=== PATIENT | male | born 1950 | race African-American/Black ===

== ENCOUNTER 2020-04-28 17:30 | IRF | payer MEDICARE, SELFPAY ==
--- NOTE | ~2020-04-28 | XR_ITS ---
MODIFIED ESOPHAGRAM HISTORY: Dysphagia. TECHNIQUE: Modified barium esophagram was performed by speech pathologist under radiologist fluorosco pic guidance. This was recorded on tape. The exam was reviewed on 05/02/2020 09:50 DISULFURIZER TENDER. The DAP for this procedure was 1.239 Gycm2. Fluoroscopy time is 1.6 minutes. FINDINGS: Lateral projection of the cervical spine demonstrates normal ventral osteophytes. Normal swallowing function without penetration or aspiration.. IMPRESSION: 1: Normal swallowing function without penetration or aspiration. 2: Please refer to speech pathologist report for additional detail. Reviewed, dictated and finalized at location A. LFURIZER TENDER
[2020-04-28 17:30] VITALS: BP 167/80; PULSE 64; RESP 20; TEMP 36.6; O2SAT 100; BMI 32.1
[2020-04-28 17:50] LABS: Glucose Point of Care 191 (65-105)
--- NOTE | 2020-04-28 18:03 | ADMGEN ---
This patient, Gabriel Gar, was admitted to [facility] Room 226-01. Patient/family oriented to hospital policies and general routines including ID bracelet, bed and alarms, visiting hours, pain management, procedures, bathroom and other care routines, personal items, smoking policy, room service/diet, and visiting hours. Information on how to activate the Rapid Response Team has been discussed. Patient/Family are encouraged to report perceived risks to care and to ask questions if they do not understand what they are told or what they should do. Patient arrived via stretcher with [facility] ambulance service, per EMS V/S were stable during transport. the patient is alert and oriented to person, place and time, states he has chronic pain and no new pain at this time.
[2020-04-28] MEDS: ATORVASTATIN 20 MG TABLET PO (21:25)
[2020-04-28] MEDS: EZETIMIBE 10 MG TABLET PO (21:25)
[2020-04-28] MEDS: GABAPENTIN 300 MG CAPSULE PO (21:25)
[2020-04-28] MEDS: FAMOTIDINE 20 MG TABLET PO (21:25)
[2020-04-28 22:00] VITALS: BP 156/87; PULSE 59; RESP 20; TEMP 36.8; O2SAT 95
[2020-04-28 23:15] LABS: Glucose Point of Care 218 (65-105)
[2020-04-29 05:05] LABS: Basophils Absolute Auto 0.1 K/mm3 (0.0-0.1); Basophils Percent Auto 0.8 % (0.2-1.2); Eosinophils Absolute Auto 0.3 K/mm3 (0-0.3); Eosinophils Percent Auto 2.8 % (0-4.4); Hematocrit 47.3 % (42.0-52.0); Hemoglobin 15.2 g/dL (14.0-18.0); Immature Granulocyte Absolute 0.18 K/mm3 (0.00-0.031); Immature Granulocyte Percent A 1.8 % (0-0.5); Lymphocytes Absolute Auto 2.61 K/mm3 (0.9-3.2); Lymphocytes Percent Auto 26.7 % (18.3-44.2); Mean Corpuscular HGB Conc 32.1 g/dl (32-36); Mean Corpuscular Hemoglobin 29.6 pg (26-34); Mean Platelet Volume 9.5 fl (7.4-10.4); Monocytes Absolute Auto 0.6 K/mm3 (0.1-0.6); Monocytes Percent Auto 6.1 % (2.6-8.5); Neutrophils Percent Auto 61.8 % (45.5-73.1); Platelet Count Result 403 k/mm3 (150-375); Red Blood Count 5.14 M/mm3 (4.6-6.20); Red Cell Distribution Width 13.9 % (11.5-14.5); White Blood Count 9.8 K/mm3 (4.5-10.0)
[2020-04-29 05:26] LABS: Hemoglobin A1C 7.8 % (<5.7)
[2020-04-29 05:39] LABS: Anion Gap 3 mmol/L (8-16); Blood Urea Nitrogen 8 mg/dL (9-20); Calcium 8.6 mg/dL (8.4-10.2); Carbon Dioxide 27 mmol/L (22-30); Chloride 108 mmol/L (98-107); Cholesterol 165 mg/dL (0-200); Estimated CRCL calculation 143 ml/min; Estimated Glomerular Filt Rate > 60; Glucose 162 mg/dL (75-110); HDL Direct 17 mg/dL; Potassium 4.3 mmol/L (3.4-5.0); Sodium 138 mmol/L (137-145); Triglycerides 172 mg/dL (<150)
[2020-04-29 05:50] LABS: LDL Cholesterol Direct 118 mg/dL
[2020-04-29 06:00] VITALS: BP 137/64; PULSE 64; RESP 20; TEMP 36.8; O2SAT 96
[2020-04-29 06:21] LABS: Glucose Point of Care 156 (65-105)
[2020-04-29] MEDS: ACETAMINOPHEN 500 MG TABLET PO ×2 (06:22→19:53)
[2020-04-29] MEDS: LEVOTHYROXINE SODIUM 125 MCG TABLET PO (06:23)
[2020-04-29] MEDS: ASPIRIN 81 MG CHEWABLE TABLET PO (09:39)
[2020-04-29] MEDS: TIZANIDINE HCL 4 MG TABLET 8 MG PO (09:39)
[2020-04-29] MEDS: CLOPIDOGREL BISULFATE 75 MG TABLET PO (09:40)
[2020-04-29] MEDS: lisinopriL 2.5 MG TABLET PO (09:40)
[2020-04-29] MEDS: CHOLECALCIFEROL 1,000 UNITS TABLET 1000 UNITS PO (09:40)
[2020-04-29] MEDS: FAMOTIDINE 20 MG TABLET PO ×2 (09:40→20:25)
[2020-04-29] MEDS: CYANOCOBALAMIN 1,000 MCG TABLET 1000 MCG PO (09:40)
[2020-04-29] MEDS: VITAMIN B COMPLEX CAPSULE 1 CAP PO (09:40)
--- NOTE | 2020-04-29 11:45 | WPDREHABHP ---
H&P: HPI History of Present Illness Date/Time: 04/29/20 11:45 Chief Complaint: his small acute recent stroke of the right cerebral hemisphere subcortical in location Narrative: Gabriel Gar is a 69 year old male HISTORY OF PRESENT ILLNESS: The patient's primary rehab impairment category is 0 1/stroke The etiologic diagnosis is small acute recent infarction in the right cerebral hemisphere I saw this patient [id number] on April 29, 2020 at 8:30 a.m. The patient is a 69 years old right-handed male with a medical history of PVD, diabetes type 2, COPD, and hypertension. The patient drove himself to the emergency room at [facility] several hours after onset of left-sided numbness on April 26, 2020. The patient stated he had gone to sleep the previous night at approximately 10:00 p.m. and was at baseline function at that time. He states he woke up a couple of times through the night and did not recall having numbness. Patient stated that he awoke at 4:00 a.m. and noticed numbness sensation along left side of face neck, Left side of the neck, left upper extremity, including left hand, left lower extremity, including left foot. Patient stated he waited for a few hours and when symptoms did not resolve he drove himself to the emergency room. He recalled having gait instability when walking to his car, some difficulties in driving. A head and neck CTA revealed no acute abnormalities, no evidence of intracranial hemorrhage, mass effect, or CT evidence of acute ischemia, and no carotid or vertebral stenosis. Cervical spine x-ray revealed degenerative changes at C5 and C6. A chest x-ray was Can a mild haziness and interstitial opacities predominantly in the lower lung, nonspecific for mild scattered atelectasis, pulmonary edema or atypical viral pneumonia. EKG showed sinus rhythm. Labs revealed hypercalcemia, elevated BUN, and low creatinine. An echo on April 27, 2020 showed an EF of 55 to 65%. Brain MRI revealed small acute recent infarction in the right cerebral hemisphere. Multiple chronic infarctions. Parenchymal volume loss and chronic microvascular ischemic type white matter changes. Neurology was consulted and recommended dietary changes, his smoking cessation, currently on Plavix and aspirin and hemoglobin A1c 7.9 bedside swallowing test recommended regular level 7 diet and nectar thickened liquids. Patient has improved since working with therapy, therapist he states patient would benefit from inpatient rehab. Will discharge to see on aspirin and Plavix for DVT prophylaxis for approximately 6 months. #COVID: The patient has not traveled outside the [place] or had contact with someone who is ill that is travel outside the [place] in the past 21 days. The patient has not traveled to an area of the [place] there is experiencing known transmission of the Coronavirus and has not had close personal contact with anyone that has. The patient does not have a fever. The patient is not experiencing lower respiratory illness symptoms. The patient does,however, have COPD at baseline. Patient tested negative for COVID on April 26, 2020 Therapy was initiated at the [facility] facility and the patient transferred to from [facility] on April 28, 2020. FALLS OR SURGERIES: the patient has not had any surgery in the last 100 days. Patient has had more than 2 falls in the past year. The patient has had no falls with injury in the past year.. PAST MEDICAL HISTORY: Benign prostatic hypertrophy, chronic pain, PD, DTs mellitus, lipidemia, neuropathy, peripheral vascular disease, thyroid goiter, tobacco use. PAST SURGICAL HISTORY: Thyroid surgery in 2017, cervical spine surgery in 1995, cholecystectomy in 2004, right knee surgery in 2014, [facility] left inguinal hernia repair and revascularization of the iliac artery with angio stent in 2016, and colonoscopy in November 26, 2019. SOCIAL HISTORY: The sussy
[2020-04-29 12:15] LABS: Glucose Point of Care 277 (65-105)
[2020-04-29 12:32] VITALS: BMI 32.1
[2020-04-29] MEDS: INSULIN ASPART (*BKC) 100 UNITS/ML SUB-Q ×2 (13:11→18:28)
[2020-04-29] MEDS: HYDROcodone/acetaminophen (*CRX) 10-325 MG TABLET 1 TAB PO ×2 (13:13→21:53)
[2020-04-29] MEDS: MAGNESIUM OXIDE 200 MG TABLET PO (13:14)
[2020-04-29 14:00] VITALS: BP 136/66; PULSE 62; RESP 18; TEMP 36.4; O2SAT 97
--- NOTE | 2020-04-29 15:16 | WPDNEURORHBP ---
Subjective Date/time seen: 04/29/20 15:16 69 years old with right hemispheric subcortical stroke in addition to the ongoing diagnosis of 1. Diabetes mellitus 2. COPD 3. Hypertension 4. History of PVD remains afebrile with pulse of 64 respiration 20 blood pressure 137/64 pulse ox 96% on room air CBC normal platelet count of 403 electrolytes normal 277 hemoglobin A1c 7.8 and triglycerides 172 along with HDL only 17 failed on the modified barium swallow will need the thickened liquids Review of Systems Review of Systems: All systems reviewed & are unremarkable except as noted in HPI and below Functional Status Ambulation Ability Ability to Ambulate 10 Feet: Maximum Assistance X 1 Ability to Ambulate 50 Feet With 2 Turns: Maximum Assistance X 1 Ambulation Assistive Devices: None and Cane Exam Const: General: no acute distress Nutritional Appearance: average body habitus HENMT: Head: normocephalic Eyes: General: appearance normal, both eyes and all related structures Neck: Neck: full ROM and no lymphadenopathy Resp: Effort & Inspection: normal respiratory effort Auscultation: clear to auscultation bilaterally Cardio: Jugular venous distension: no JVD Rate: regular rate Rhythm: regular rhythm GI: Auscultation: normal bowel sounds Skin: General skin exam: no rashes or lesions noted Neuro: General: patient oriented x3 and moves all extremities Cranial nerves: Yes CN's II-XII intact bilaterally Cognition (Neuro): normal cognition Speech: normal speech Gait exam (Neuro): Normal gait present ( left hemiparetic gait) Motor exam (neuro): Abnormal motor strength present ( left hemiparesis) Plantar Reflex Responses: downgoing: right and upgoing (positive Babinski): left Coordination: [id number] test normal Extrem: General: full ROM Psych: Appearance: grossly normal Objective Data Vital Signs Vital Signs: Vital Signs - 24 hr 04/28/20 17:30 04/28/20 22:00 04/29/20 06:00 Temperature 36.6 C 36.8 C 36.8 C Pulse Rate 64 59 L 64 Respiratory Rate 20 20 20 Blood Pressure 167/80 H 156/87 H 137/64 Pulse Oximetry 100 95 96 Intake/Output Intake/Output: Intake & Output 04/26/20 04/27/20 04/28/20 04/29/20 23:59 23:59 23:59 23:59 Intake Total 600 Balance 600 Meds/Results Medications: Active Medications Generic Name Dose Route Start Last Admin Trade Name Freq PRN Reason Stop Dose Admin Acetaminophen 500 mg 04/28/20 18:54 04/29/20 06:22 Acetaminophen 500 Mg Tablet PO 500 mg Q6H PRN Administration Pain Hydrocodone Bitart/Acetaminophen 1 tab 04/29/20 14:00 04/29/20 13:13 Hydrocodone/Acetaminophen (*Crx) 10-325 Mg Tablet PO 1 tab Q8H SUKHJINDER Administration Albuterol 2 puff 04/28/20 18:54 Albuterol Sulfate (*Sp) Aerosol 1 Puff INHALATION Q4H PRN Wheezing Aspirin 81 mg 04/29/20 09:00 04/29/20 09:39 Aspirin 81 Mg Chewable Tablet PO 05/29/20 09:01 81 mg DAILY SUKHJINDER Administration Atorvastatin Calcium 20 mg 04/28/20 21:00 04/28/20 21:25 Atorvastatin 20 Mg Tablet PO 20 mg HS SUKHJINDER Administration Clopidogrel Bisulfate 75 mg 04/29/20 09:00 04/29/20 09:40 Clopidogrel Bisulfate 75 Mg Tablet PO 75 mg DAILY SUKHJINDER Administration Cyanocobalamin 1,000 mcg 04/29/20 09:00 04/29/20 09:40 Cyanocobalamin 1,000 Mcg Tablet PO 1,000 mcg DAILY SUKHJINDER Administration Dextrose 12.5 gm 04/28/20 18:18 Dextrose 50% 25 Gm/50 Ml Syringe IV PUSH PRN PRN Hypoglycemia Protocol Ezetimibe 10 mg 04/28/20 21:00 04/28/20 21:25 Ezetimibe 10 Mg Tablet PO 10 mg HS SUKHJINDER Administration Famotidine 20 mg 04/28/20 21:00 04/29/20 09:40 Famotidine 20 Mg Tablet PO 20 mg Q12HR SUKHJINDER Administration Gabapentin 300 mg 04/28/20 21:00 04/28/20 21:25 Gabapentin 300 Mg Capsule PO 300 mg HS SUKHJINDER Administration Glucagon 1 mg 04/28/20 18:18 Glucagon For Inj 1 Mg Vial IM PRN PRN Hypoglycemia Protocol Glucose
[2020-04-29 16:56] LABS: Glucose Point of Care 215 (65-105)
[2020-04-29 20:00] VITALS: PULSE 51; RESP 16; O2SAT 98
[2020-04-29] MEDS: ATORVASTATIN 20 MG TABLET PO (20:25)
[2020-04-29] MEDS: GABAPENTIN 300 MG CAPSULE PO (20:25)
[2020-04-29] MEDS: EZETIMIBE 10 MG TABLET PO (20:25)
[2020-04-29 22:00] VITALS: BP 129/71; PULSE 51; RESP 16; TEMP 36.7; O2SAT 98
[2020-04-29 22:43] LABS: Glucose Point of Care 196 (65-105)
[2020-04-30] MEDS: LEVOTHYROXINE SODIUM 125 MCG TABLET PO (05:49)
[2020-04-30] MEDS: HYDROcodone/acetaminophen (*CRX) 10-325 MG TABLET 1 TAB PO ×3 (05:50→22:20)
[2020-04-30 06:00] VITALS: BP 134/79; PULSE 78; RESP 16; TEMP 36.6; O2SAT 100
[2020-04-30 06:54] LABS: Glucose Point of Care 155 (65-105)
[2020-04-30 08:00] VITALS: PULSE 78; RESP 16; O2SAT 100
[2020-04-30] MEDS: CYANOCOBALAMIN 1,000 MCG TABLET 1000 MCG PO (09:51)
[2020-04-30] MEDS: MAGNESIUM OXIDE 200 MG TABLET PO (09:51)
[2020-04-30] MEDS: lisinopriL 2.5 MG TABLET PO (09:51)
[2020-04-30] MEDS: ASPIRIN 81 MG CHEWABLE TABLET PO (09:51)
[2020-04-30] MEDS: VITAMIN B COMPLEX CAPSULE 1 CAP PO (09:51)
[2020-04-30] MEDS: FAMOTIDINE 20 MG TABLET PO ×2 (09:51→20:02)
[2020-04-30] MEDS: CHOLECALCIFEROL 1,000 UNITS TABLET 1000 UNITS PO (09:51)
[2020-04-30] MEDS: CLOPIDOGREL BISULFATE 75 MG TABLET PO (09:52)
[2020-04-30 11:54] LABS: Glucose Point of Care 252 (65-105)
[2020-04-30] MEDS: INSULIN ASPART (*BKC) 100 UNITS/ML SUB-Q ×2 (11:59→17:14)
--- NOTE | 2020-04-30 12:01 | WPDNEURORHBP ---
Subjective Date/time seen: 04/30/20 12:01 69 years old his right hemispheric subcortical stroke in addition to 1. Diabetes mellitus 2. COPD 3. Hypertension 4. History of PVD remains afebrile with temp of 36.6? 78 respirations 16 pulse ox 100 on room air, no new lab Review of Systems Review of Systems: All systems reviewed & are unremarkable except as noted in HPI and below Functional Status Ambulation Ability Ability to Ambulate 10 Feet: Minimum Assistance X 1 Ability to Ambulate 50 Feet With 2 Turns: Minimum Assistance X 1 Ambulation Assistive Devices: Walker, Wheeled Transfers Ability Ability to Transfer In/Out of Chair: Minimum Assistance X 1 Exam Const: General: comfortable and no acute distress Nutritional Appearance: average body habitus Orientation/consciousness: patient oriented x3 HENMT: Ears: hearing grossly normal bilaterally General nose exam: Normal external nose present and No nasal discharge present Mouth: Yes Normal oral and palatal mucosa present Eyes: General: appearance normal, both eyes and all related structures Neck: Neck: full ROM Resp: Effort & Inspection: normal respiratory effort Auscultation: clear to auscultation bilaterally Cardio: Jugular venous distension: no JVD Rate: regular rate Rhythm: regular rhythm GI: Auscultation: normal bowel sounds Skin: General skin exam: no rashes or lesions noted Neuro: General: patient oriented x3 and moves all extremities Cranial nerves: Yes CN's II-XII intact bilaterally Cognition (Neuro): normal cognition Speech: normal speech Gait exam (Neuro): Assisted gait required Motor exam (neuro): 5/5 motor strength present throughout ( left hemiparesis) Deep tendon reflexes (DTR's): Right triceps reflex intensity grade: 1+, Left triceps reflex intensity grade: 2+, Rt Biceps (C5, C6): 1+, Left biceps reflex intensity grade: 2+, Right brachioradialis reflex intensity grade: 1+, Left brachioradialis reflex intensity grade: 2+, Right patellar reflex intensity grade: 1+, Left patellar reflex intensity grade: 2+, Right ankle reflex intensity grade: 1+ and Left ankle reflex intensity grade: 2+ Plantar Reflex Responses: downgoing: right and upgoing (positive Babinski): left Coordination: Normal rapid alternating movements of the distal upper extremity present (Neuro) ( slow on the left side) Psych: Appearance: grossly normal Objective Data Vital Signs Vital Signs: Vital Signs - 24 hr 01/13/21 14:00 04/29/20 20:00 04/29/20 22:00 Temperature 36.4 C 36.7 C Pulse Rate 62 51 L 51 L Respiratory Rate 18 16 16 Blood Pressure 136/66 129/71 Pulse Oximetry 97 98 98 04/30/20 06:00 04/30/20 08:00 Temperature 36.6 C Pulse Rate 78 78 Respiratory Rate 16 16 Blood Pressure 134/79 Pulse Oximetry 100 100 Intake/Output Intake/Output: Intake & Output 04/27/20 04/28/20 04/29/20 04/30/20 23:59 23:59 23:59 23:59 Intake Total 840 240 Balance 840 240 Meds/Results Medications: Active Medications Generic Name Dose Route Start Last Admin Trade Name Freq PRN Reason Stop Dose Admin Acetaminophen 500 mg 04/28/20 18:54 04/29/20 19:53 Acetaminophen 500 Mg Tablet PO 500 mg Q6H PRN Administration Pain Hydrocodone Bitart/Acetaminophen 1 tab 04/29/20 14:00 04/30/20 05:50 Hydrocodone/Acetaminophen (*Crx) 10-325 Mg Tablet PO 1 tab Q8H SUKHJINDER Administration Albuterol 2 puff 04/28/20 18:54 Albuterol Sulfate (*Sp) Aerosol 1 Puff INHALATION Q4H PRN Wheezing Aspirin 81 mg 04/29/20 09:00 04/30/20 09:51 Aspirin 81 Mg Chewable Tablet PO 05/29/20 09:01 81 mg DAILY SUKHJINDER Administration Atorvastatin Calcium 20 mg 04/28/20 21:00 04/29/20 20:25 Atorvastatin 20 Mg Tablet PO 20 mg HS SUKHJINDER Administration Clopidogrel Bisulfate 75 mg 04/29/20 09:00 04/30/20 09:52 Clopidogrel Bisulfate 75 Mg Tablet PO 75 mg DAILY SUKHJINDER Administration Cyanocobalamin 1,000 mcg 04/29/20 09:00 04/30/20 09:51 Cyanocobalamin
[2020-04-30 14:00] VITALS: BP 138/76; PULSE 81; RESP 20; TEMP 36.6; O2SAT 100
--- NOTE | 2020-04-30 14:13 | RPD ---
INDIVIDUALIZED PLAN OF CARE FOR aGbriel Gar Brief Synthesis of Pre-Admission Screen, Post-Admission Evaluation and Therapy Evaluations: The patient presents to rehab with a right cerebral hemisphere acute infarct. Comorbidities include hypertension, hyperlipidemia, diabetes type 2, hypercholesterolemia, elevated hemoglobin A1c, dyslipidemia, postsurgical hypothyroidism, chronic pain, polyneuropathy, arteriosclerotic cardiovascular disease, tobacco use, hypocalcemia, PVD, and PAD. The complexity of the patient's medical management, nursing, and therapy needs require an inpatient rehab hospital stay with a physician-led interdisciplinary team approach. The patient?s needs will be best met in an intensive program vs. at a lower level of care. The patient requires physician services for neurology services, medical oversight, and coordination of care. Emotional needs will be monitored as depression is a common sequelae of stroke. The patient needs physician monitoring and treatment of monitoring for adverse reactions to new medications, monitoring of infection, pain control, hypertension, hyperlipidemia, hypercholesterolemia, diabetes type 2, elevated hemoglobin A1c, dyslipidemia, postsurgical hypothyroidism, chronic pain, polyneuropathy, arteriosclerotic cardiovascular disease, smoking, PVD, hypocalcemia, and PAD. The patient requires nursing services for frequent neuro checks, anticoagulation therapy, medication management and education, pressure relief and skin care management, monitoring of labs, bowel and bladder training, diabetes management and education, and fall/safety precautions. The patient will participate in stroke specific education regarding risk modification to decrease the risk of further stroke; the family will also be invited to participate. Deficits include:ADLs, Balance, Endurance, Family Training/Education, Mobility, Pain Management, ROM, Safety, Speech, Strength, Swallowing, and Transfers. Manager Transition/Case Management for: Discharge Planning and Patient/Family Counseling Physical Therapy: 5 days per week for 75 minutes. Treatments may include: Therapeutic Exercise, Gait Training, Neuromuscular Re-education, Transfer Training, Community Reintegration, Bed Mobility, Patient/Family Education, Wheelchair Mobility Group Therapy/Concurrent Therapy Rationales: -Improve attention span during functional activities in a distracted environment. -Enhance problem solving and/or adequate judgment skills during functional activities in a distracted environment. -Promote increased safety awareness in a distracted environment to reduce fall risk with functional tasks, transfers, and ambulation to allow a more safe, self-sufficient return to the home environment. -Improve dynamic balance skills to promote safety and independence with functional activities in a distracted environment for maximum gain. Occupational Therapy: 5 days per week for 75 minutes. Treatments may include: Therapeutic Exercise, Therapeutic Activity, Cognitive Training, Self-Care Transfer Training, Community Reintegration, Home Management, Patient/Family Education, Wheelchair Mobility Training, Energy Conservation Training Group Therapy/Concurrent Therapy Rationales: -Allow therapist to observe and teach generalization and carry-over of skills learned in individual therapy. -Enhance problem solving and sequencing skills during therapeutic activities in a distracted environment. -Promote increased safety awareness in a realistic setting to reduce fall risk with functional tasks due to visual and verbal distractions. -Increase functional level with ADLs, ADL transfers and use of adaptive equipment through therapeutic activities with others while promoting safety to allow a more safe, self-sufficient return home. Speech Therapy: 5 days per week for 30 minutes. Treatments may include: Dysphasia Therapy, Speech/Language/Communication Therapy, Cognitive Training, Patient/Family Education Group The
[2020-04-30 16:48] LABS: Glucose Point of Care 243 (65-105)
[2020-04-30 20:00] VITALS: PULSE 81; RESP 20; O2SAT 100
[2020-04-30] MEDS: ATORVASTATIN 20 MG TABLET PO (20:02)
[2020-04-30] MEDS: GABAPENTIN 300 MG CAPSULE PO (20:02)
[2020-04-30] MEDS: EZETIMIBE 10 MG TABLET PO (20:03)
[2020-04-30] MEDS: ACETAMINOPHEN 500 MG TABLET PO (20:05)
[2020-04-30] MEDS: TIZANIDINE HCL 4 MG TABLET 8 MG PO (20:07)
[2020-04-30 22:00] VITALS: BP 109/60; PULSE 50; RESP 20; TEMP 37.1; O2SAT 98
[2020-05-01 03:44] LABS: Glucose Point of Care 268 (65-105)
[2020-05-01] MEDS: LEVOTHYROXINE SODIUM 125 MCG TABLET PO (05:41)
[2020-05-01 05:43] LABS: Glucose Point of Care 256 (65-105)
[2020-05-01] MEDS: HYDROcodone/acetaminophen (*CRX) 10-325 MG TABLET 1 TAB PO ×3 (05:43→21:00)
[2020-05-01 06:00] VITALS: BP 144/73; PULSE 55; RESP 18; TEMP 36.6; O2SAT 96
[2020-05-01] MEDS: MAGNESIUM OXIDE 200 MG TABLET PO (08:31)
[2020-05-01] MEDS: CHOLECALCIFEROL 1,000 UNITS TABLET 1000 UNITS PO (08:31)
[2020-05-01] MEDS: VITAMIN B COMPLEX CAPSULE 1 CAP PO (08:31)
[2020-05-01] MEDS: ASPIRIN 81 MG CHEWABLE TABLET PO (08:31)
[2020-05-01] MEDS: lisinopriL 2.5 MG TABLET PO (08:31)
[2020-05-01] MEDS: CLOPIDOGREL BISULFATE 75 MG TABLET PO (08:31)
[2020-05-01] MEDS: CYANOCOBALAMIN 1,000 MCG TABLET 1000 MCG PO (08:31)
[2020-05-01] MEDS: FAMOTIDINE 20 MG TABLET PO ×2 (08:31→21:00)
[2020-05-01] MEDS: INSULIN ASPART (*BKC) 100 UNITS/ML SUB-Q ×4 (08:32→16:46)
[2020-05-01] MEDS: ACETAMINOPHEN 500 MG TABLET PO (08:42)
--- NOTE | 2020-05-01 10:40 | WPDNEURORHBP ---
Subjective Date/time seen: 05/01/20 10:40 69 years old with right hemispheric subcortical stroke in addition to history of diabetes mellitus, COPD, hypertension, and history of PVD remains afebrile with temp of 36.6? pulse 55 respiration 18 pulse ox 96% on room air blood pressure 144/73, no new lab, able to ambulate up to 50ft with 2 turns using the minimum assistance of a wheeled walker able to transfer in and out of chair with minimal assistance of 1 definitely making progress Review of Systems Review of Systems: All systems reviewed & are unremarkable except as noted in HPI and below Functional Status Ambulation Ability Ability to Ambulate 10 Feet: Minimum Assistance X 1 Ability to Ambulate 50 Feet With 2 Turns: Minimum Assistance X 1 Ambulation Assistive Devices: Walker, Wheeled Transfers Ability Ability to Transfer In/Out of Chair: Minimum Assistance X 1 Exam Const: General: cooperative and no acute distress Nutritional Appearance: average body habitus Limitations: no limitations HENMT: Ears: hearing grossly normal bilaterally General nose exam: Normal external nose present and No nasal discharge present Mouth: Yes Normal oral and palatal mucosa present Eyes: General: appearance normal, both eyes and all related structures EOM: EOMs intact bilaterally Cardio: Jugular venous distension: no JVD Rate: regular rate Rhythm: regular rhythm GI: Auscultation: normal bowel sounds Skin: General skin exam: no rashes or lesions noted Neuro: General: patient oriented x3 Cranial nerves: Yes CN's II-XII intact bilaterally Cognition (Neuro): normal cognition Speech: normal speech Motor exam (neuro): Abnormal motor strength present Deep tendon reflexes (DTR's): Right triceps reflex intensity grade: 1+, Left triceps reflex intensity grade: 2+, Rt Biceps (C5, C6): 1+, Left biceps reflex intensity grade: 2+, Right brachioradialis reflex intensity grade: 1+, Left brachioradialis reflex intensity grade: 2+, Right patellar reflex intensity grade: 1+, Left patellar reflex intensity grade: 2+, Right ankle reflex intensity grade: 1+ and Left ankle reflex intensity grade: 2+ Plantar Reflex Responses: downgoing: right and upgoing (positive Babinski): left Psych: Appearance: grossly normal Objective Data Vital Signs Vital Signs: Vital Signs - 24 hr 04/30/20 14:00 04/30/20 20:00 04/30/20 22:00 Temperature 36.6 C 37.1 C Pulse Rate 81 81 50 L Respiratory Rate 20 20 20 Blood Pressure 138/76 109/60 Pulse Oximetry 100 100 98 05/01/20 06:00 Temperature 36.6 C Pulse Rate 55 L Respiratory Rate 18 Blood Pressure 144/73 H Pulse Oximetry 96 Intake/Output Intake/Output: Intake & Output 04/28/20 04/29/20 04/30/20 05/01/20 23:59 23:59 23:59 23:59 Intake Total 840 720 240 Balance 840 720 240 Meds/Results Medications: Active Medications Generic Name Dose Route Start Last Admin Trade Name Freq PRN Reason Stop Dose Admin Acetaminophen 500 mg 04/28/20 18:54 05/01/20 08:42 Acetaminophen 500 Mg Tablet PO 500 mg Q6H PRN Administration Pain Hydrocodone Bitart/Acetaminophen 1 tab 04/29/20 14:00 05/01/20 05:43 Hydrocodone/Acetaminophen (*Crx) 10-325 Mg Tablet PO 1 tab Q8H SUKHJINDER Administration Albuterol 2 puff 04/28/20 18:54 Albuterol Sulfate (*Sp) Aerosol 1 Puff INHALATION Q4H PRN Wheezing Aspirin 81 mg 04/29/20 09:00 05/01/20 08:31 Aspirin 81 Mg Chewable Tablet PO 05/29/20 09:01 81 mg DAILY SUKHJINDER Administration Atorvastatin Calcium 20 mg 04/28/20 21:00 04/30/20 20:02 Atorvastatin 20 Mg Tablet PO 20 mg HS SUKHJINDER Administration Clopidogrel Bisulfate 75 mg 04/29/20 09:00 05/01/20 08:31 Clopidogrel Bisulfate 75 Mg Tablet PO 75 mg DAILY SUKHJINDER Administration Cyanocobalamin 1,000 mcg 04/29/20 09:00 05/01/20 08:31 Cyanocobalamin 1,000 Mcg Tablet PO 1,000 mcg DAILY SUKHJINDER Administration Dextrose 12.5 gm 04/28/20 18:18 Dextrose 50% 25 Gm/50 Ml Syringe
[2020-05-01 11:58] LABS: Glucose Point of Care 236 (65-105)
[2020-05-01 14:00] VITALS: BP 133/69; PULSE 65; RESP 18; TEMP 36.8; O2SAT 100
[2020-05-01 15:10] VITALS: BMI 32.1
--- NOTE | 2020-05-01 15:26 | PCSTNOTE ---
Please refer to the Bedside Swallow Evaluation in the EMR. Please note, silent aspiration cannot be ruled out at bedside.
[2020-05-01 16:42] LABS: Glucose Point of Care 154 (65-105)
[2020-05-01 20:49] VITALS: BP 120/66; PULSE 65; RESP 18; TEMP 36.7; O2SAT 96
[2020-05-01] MEDS: GABAPENTIN 300 MG CAPSULE PO (21:00)
[2020-05-01] MEDS: INSULIN GLARGINE (*BKC) 100 UNITS/ML 16 UNITS SUB-Q (21:00)
[2020-05-01] MEDS: ATORVASTATIN 20 MG TABLET PO (21:00)
[2020-05-01] MEDS: EZETIMIBE 10 MG TABLET PO (21:00)
[2020-05-01 21:09] LABS: Glucose Point of Care 206 (65-105)
[2020-05-01 22:42] LABS: Add Urine Microscopic? YES; Appearance Urine Clear (Clear); Bilirubin Urine Negative (Negative); Blood Urine 2+ (Negative); Color Urine Yellow (Yellow); Glucose Urine UA Negative (Negative); Ketones Urine Negative (Negative); Leukocyte Esterase Ur Negative LEU/UL (Negative); Mucus Urine Rare /lpf; Nitrate Urine Negative (Negative); Protein Urine Negative (Negative); RBC Urine >75 /hpf (0-2); Squamous Epithelial Cell Urine Rare /hpf (Few); WBC Urine 0-3 /hpf
[2020-05-02 06:00] VITALS: BP 131/70; PULSE 67; RESP 20; TEMP 36.8; O2SAT 97
[2020-05-02] MEDS: HYDROcodone/acetaminophen (*CRX) 10-325 MG TABLET 1 TAB PO ×3 (06:00→21:58)
[2020-05-02] MEDS: LEVOTHYROXINE SODIUM 125 MCG TABLET PO (06:00)
[2020-05-02 06:23] LABS: Glucose Point of Care 170 (65-105)
[2020-05-02] MEDS: ASPIRIN 81 MG CHEWABLE TABLET PO (08:17)
[2020-05-02] MEDS: MAGNESIUM OXIDE 200 MG TABLET PO (08:17)
[2020-05-02] MEDS: FAMOTIDINE 20 MG TABLET PO ×2 (08:17→21:05)
[2020-05-02] MEDS: CHOLECALCIFEROL 1,000 UNITS TABLET 1000 UNITS PO (08:17)
[2020-05-02] MEDS: CLOPIDOGREL BISULFATE 75 MG TABLET PO (08:18)
[2020-05-02] MEDS: INSULIN ASPART (*BKC) 100 UNITS/ML SUB-Q ×3 (08:18→16:46)
[2020-05-02] MEDS: lisinopriL 2.5 MG TABLET PO (08:18)
[2020-05-02] MEDS: ACETAMINOPHEN 500 MG TABLET PO ×2 (08:18→19:56)
[2020-05-02] MEDS: CYANOCOBALAMIN 1,000 MCG TABLET 1000 MCG PO (08:18)
[2020-05-02] MEDS: VITAMIN B COMPLEX CAPSULE 1 CAP PO (08:18)
[2020-05-02 13:17] LABS: Glucose Point of Care 199 (65-105)
[2020-05-02 14:00] VITALS: BP 136/67; PULSE 67; RESP 20; TEMP 36.5; O2SAT 98
[2020-05-02 16:41] LABS: Glucose Point of Care 200 (65-105)
[2020-05-02] MEDS: CLINDAMYCIN HCL 150 MG CAP 300 MG PO (19:50)
[2020-05-02 20:48] VITALS: BP 134/67; PULSE 71; RESP 18; TEMP 36.6; O2SAT 97
[2020-05-02] MEDS: GABAPENTIN 300 MG CAPSULE PO (21:05)
[2020-05-02] MEDS: ATORVASTATIN 20 MG TABLET PO (21:05)
[2020-05-02] MEDS: EZETIMIBE 10 MG TABLET PO (21:05)
[2020-05-02] MEDS: INSULIN GLARGINE (*BKC) 100 UNITS/ML 16 UNITS SUB-Q (21:09)
[2020-05-02 22:08] LABS: Glucose Point of Care 270 (65-105)
[2020-05-03] MEDS: CLINDAMYCIN HCL 150 MG CAP 300 MG PO ×5 (00:57→23:18)
[2020-05-03] MEDS: LEVOTHYROXINE SODIUM 125 MCG TABLET PO (05:54)
[2020-05-03] MEDS: HYDROcodone/acetaminophen (*CRX) 10-325 MG TABLET 1 TAB PO ×3 (05:54→21:05)
[2020-05-03 06:00] VITALS: BP 117/61; PULSE 65; RESP 18; TEMP 36.6; O2SAT 99
[2020-05-03 06:49] LABS: Glucose Point of Care 172 (65-105)
[2020-05-03] MEDS: CHOLECALCIFEROL 1,000 UNITS TABLET 1000 UNITS PO (09:03)
[2020-05-03] MEDS: INSULIN ASPART (*BKC) 100 UNITS/ML SUB-Q ×4 (09:03→17:21)
[2020-05-03] MEDS: CLOPIDOGREL BISULFATE 75 MG TABLET PO (09:03)
[2020-05-03] MEDS: ASPIRIN 81 MG CHEWABLE TABLET PO (09:03)
[2020-05-03] MEDS: FAMOTIDINE 20 MG TABLET PO ×2 (09:04→21:05)
[2020-05-03] MEDS: VITAMIN B COMPLEX CAPSULE 1 CAP PO (09:04)
[2020-05-03] MEDS: lisinopriL 2.5 MG TABLET PO (09:04)
[2020-05-03] MEDS: MAGNESIUM OXIDE 200 MG TABLET PO (09:04)
[2020-05-03] MEDS: TIZANIDINE HCL 4 MG TABLET 8 MG PO ×2 (09:09→21:05)
[2020-05-03] MEDS: CYANOCOBALAMIN 1,000 MCG TABLET 1000 MCG PO (09:41)
[2020-05-03 11:53] LABS: Glucose Point of Care 191 (65-105)
--- NOTE | 2020-05-03 13:23 | WPDNEURORHBP ---
Subjective Date/time seen: 05/03/20 13:23 69 years old with right hemispheric subcortical stroke in addition to history of diabetes mellitus, COPD, hypertension, and PVD remains afebrile with temp of 36.6? pulse 65 respiration 18 pulse ox 99% on room air and blood pressure 117/61, has been able to ambulate 50ft with 2 turns with minimum assistance of 1 using a wheeled walker. Review of Systems Review of Systems: All systems reviewed & are unremarkable except as noted in HPI and below Functional Status Ambulation Ability Ability to Ambulate 10 Feet: Contact Guard Ability to Ambulate 50 Feet With 2 Turns: Contact Guard Ability to Ambulate 150 Feet: Contact Guard Ambulation Assistive Devices: Cane Transfers Ability Ability to Transfer In/Out of Chair: Standby Assistance Exam Const: General: cooperative and no acute distress Nutritional Appearance: well nourished HENMT: Head: normocephalic Ears: hearing grossly normal bilaterally General nose exam: Normal external nose present and No nasal discharge present Face and sinus: normal facial exam Mouth: Yes Normal oral and palatal mucosa present Eyes: General: appearance normal, both eyes and all related structures Neck: Neck: full ROM Resp: Effort & Inspection: normal respiratory effort Auscultation: clear to auscultation bilaterally Cardio: Jugular venous distension: no JVD Rate: regular rate Rhythm: regular rhythm Skin: General skin exam: no rashes or lesions noted Neuro: General: patient oriented x3 Cranial nerves: Yes CN's II-XII intact bilaterally Cognition (Neuro): normal cognition Motor exam (neuro): Abnormal motor strength present Deep tendon reflexes (DTR's): Right triceps reflex intensity grade: 2+, Left triceps reflex intensity grade: 1+, Rt Biceps (C5, C6): 2+, Left biceps reflex intensity grade: 1+, Right brachioradialis reflex intensity grade: 2+, Left brachioradialis reflex intensity grade: 1+, Right patellar reflex intensity grade: 2+, Left patellar reflex intensity grade: 1+, Right ankle reflex intensity grade: 2+ and Left ankle reflex intensity grade: 1+ Plantar Reflex Responses: downgoing: left and upgoing (positive Babinski): right Psych: Appearance: grossly normal Objective Data Vital Signs Vital Signs: Vital Signs - 24 hr 05/02/20 14:00 05/02/20 20:48 05/03/20 06:00 Temperature 36.5 C 36.6 C 36.6 C Pulse Rate 67 71 65 Respiratory Rate 20 18 18 Blood Pressure 136/67 134/67 117/61 Pulse Oximetry 98 97 99 Intake/Output Intake/Output: Intake & Output 04/30/20 05/01/20 05/02/20 05/03/20 23:59 23:59 23:59 23:59 Intake Total 720 720 720 240 Balance 720 720 720 240 Meds/Results Medications: Active Medications Generic Name Dose Route Start Last Admin Trade Name Freq PRN Reason Stop Dose Admin Acetaminophen 500 mg 04/28/20 18:54 05/02/20 19:56 Acetaminophen 500 Mg Tablet PO 500 mg Q6H PRN Administration Pain Hydrocodone Bitart/Acetaminophen 1 tab 04/29/20 14:00 05/03/20 05:54 Hydrocodone/Acetaminophen (*Crx) 10-325 Mg Tablet PO 1 tab Q8H SUKHJINDER Administration Albuterol 2 puff 04/28/20 18:54 Albuterol Sulfate (*Sp) Aerosol 1 Puff INHALATION Q4H PRN Wheezing Aspirin 81 mg 04/29/20 09:00 05/03/20 09:03 Aspirin 81 Mg Chewable Tablet PO 05/29/20 09:01 81 mg DAILY SUKHJINDER Administration Atorvastatin Calcium 20 mg 04/28/20 21:00 05/02/20 21:05 Atorvastatin 20 Mg Tablet PO 20 mg HS SUKHJINDER Administration Clindamycin HCl 300 mg 05/02/20 18:00 05/03/20 12:39 Clindamycin Hcl 150 Mg Cap PO 300 mg Q6HR SUKHJINDER Administration Clopidogrel Bisulfate 75 mg 04/29/20 09:00 05/03/20 09:03 Clopidogrel Bisulfate 75 Mg Tablet PO 75 mg DAILY SUKHJINDER Administration Cyanocobalamin 1,000 mcg 04/29/20 09:00 05/03/20 09:41 Cyanocobalamin 1,000 Mcg Tablet PO 1,000 mcg DAILY SUKHJINDER Administration Dextrose 12.5 gm 04/28/20 18:18 Dextrose 50% 25 Gm/50 Ml Syringe IV PUSH P
[2020-05-03 14:00] VITALS: BP 101/51; PULSE 51; RESP 18; TEMP 36.3; O2SAT 98
[2020-05-03 17:08] LABS: Glucose Point of Care 234 (65-105)
[2020-05-03] MEDS: INSULIN GLARGINE (*BKC) 100 UNITS/ML 16 UNITS SUB-Q (21:03)
[2020-05-03] MEDS: GABAPENTIN 300 MG CAPSULE PO (21:04)
[2020-05-03] MEDS: EZETIMIBE 10 MG TABLET PO (21:05)
[2020-05-03] MEDS: ATORVASTATIN 20 MG TABLET PO (21:05)
[2020-05-03 21:11] LABS: Glucose Point of Care 278 (65-105)
[2020-05-03 21:20] VITALS: BP 132/54; PULSE 64; RESP 18; TEMP 36.6; O2SAT 98
[2020-05-04 05:57] VITALS: BP 112/56; PULSE 56; RESP 18; TEMP 36.4; O2SAT 98
[2020-05-04] MEDS: HYDROcodone/acetaminophen (*CRX) 10-325 MG TABLET 1 TAB PO ×3 (06:26→21:59)
[2020-05-04] MEDS: CLINDAMYCIN HCL 150 MG CAP 300 MG PO ×4 (06:26→22:58)
[2020-05-04] MEDS: LEVOTHYROXINE SODIUM 125 MCG TABLET PO (06:26)
[2020-05-04 06:27] LABS: Glucose Point of Care 220 (65-105)
[2020-05-04] MEDS: INSULIN ASPART (*BKC) 100 UNITS/ML SUB-Q ×5 (09:00→17:02)
[2020-05-04] MEDS: ASPIRIN 81 MG CHEWABLE TABLET PO (09:12)
[2020-05-04] MEDS: CLOPIDOGREL BISULFATE 75 MG TABLET PO (09:12)
[2020-05-04] MEDS: CHOLECALCIFEROL 1,000 UNITS TABLET 1000 UNITS PO (09:12)
[2020-05-04] MEDS: FAMOTIDINE 20 MG TABLET PO ×2 (09:13→21:00)
[2020-05-04] MEDS: MAGNESIUM OXIDE 200 MG TABLET PO (09:13)
[2020-05-04] MEDS: VITAMIN B COMPLEX CAPSULE 1 CAP PO (09:13)
[2020-05-04] MEDS: CYANOCOBALAMIN 1,000 MCG TABLET 1000 MCG PO (09:13)
[2020-05-04] MEDS: lisinopriL 2.5 MG TABLET PO (09:13)
[2020-05-04 12:06] LABS: Glucose Point of Care 152 (65-105)
[2020-05-04 14:00] VITALS: BP 123/61; PULSE 67; RESP 20; TEMP 36.6; O2SAT 96
--- NOTE | 2020-05-04 15:00 | PCCDE ---
Diabetes education f/up: pt continues on 16 units Lantus HS, 5 units Novolog TID WM and low dose correction scale. Attempted to contact endo office for home insulin doses but waited on hold for 1 hour w/o success. Noted BG pattern: FBS 170-220mg/dl, lunch 152-199, dinner 200-234, HS 270-278 Recommend increase insulin slowly by increasing Lantus to 20 units at HS and monitor glucose pattern; pt may need mealtime Novolog increased as well. Dr Jo is gone for the day; spoke to HERNAN Amador to pass on for report in the am.
--- NOTE | 2020-05-04 15:51 | PCPTNOTE ---
Gabriel Gar was evaluated for a straight cane on 05/04/2020 by this physical therapist. The straight cane will resolve patient's mobility limitations and will be used for ADL's within the home. The patient can safely use the straight cane. ?The straight cane will resolve the patient?s mobility deficits, including impaired balance and decrease strength.
[2020-05-04 16:49] LABS: Glucose Point of Care 202 (65-105)
[2020-05-04 20:56] VITALS: BP 164/80; PULSE 71; RESP 20; TEMP 36.9; O2SAT 98
[2020-05-04] MEDS: EZETIMIBE 10 MG TABLET PO (21:00)
[2020-05-04] MEDS: GABAPENTIN 300 MG CAPSULE PO (21:00)
[2020-05-04] MEDS: ATORVASTATIN 20 MG TABLET PO (21:00)
[2020-05-04] MEDS: ACETAMINOPHEN 500 MG TABLET PO (21:01)
[2020-05-04] MEDS: INSULIN GLARGINE (*BKC) 100 UNITS/ML 16 UNITS SUB-Q (21:14)
[2020-05-04 21:50] LABS: Glucose Point of Care 226 (65-105)
[2020-05-05 05:43] VITALS: BP 125/64; PULSE 71; RESP 20; TEMP 36.8; O2SAT 95
[2020-05-05] MEDS: CLINDAMYCIN HCL 150 MG CAP 300 MG PO ×3 (05:44→17:31)
[2020-05-05] MEDS: LEVOTHYROXINE SODIUM 125 MCG TABLET PO (05:45)
[2020-05-05] MEDS: HYDROcodone/acetaminophen (*CRX) 10-325 MG TABLET 1 TAB PO ×3 (05:46→20:21)
[2020-05-05 06:45] LABS: Glucose Point of Care 172 (65-105)
[2020-05-05 08:00] VITALS: PULSE 71; RESP 20; O2SAT 95
[2020-05-05] MEDS: INSULIN ASPART (*BKC) 100 UNITS/ML SUB-Q ×5 (09:04→17:31)
[2020-05-05] MEDS: lisinopriL 2.5 MG TABLET PO (09:16)
[2020-05-05] MEDS: FAMOTIDINE 20 MG TABLET PO ×2 (09:16→20:18)
[2020-05-05] MEDS: CHOLECALCIFEROL 1,000 UNITS TABLET 1000 UNITS PO (09:16)
[2020-05-05] MEDS: MAGNESIUM OXIDE 200 MG TABLET PO (09:16)
[2020-05-05] MEDS: VITAMIN B COMPLEX CAPSULE 1 CAP PO (09:16)
[2020-05-05] MEDS: ASPIRIN 81 MG CHEWABLE TABLET PO (09:17)
[2020-05-05] MEDS: CLOPIDOGREL BISULFATE 75 MG TABLET PO (09:17)
[2020-05-05] MEDS: CYANOCOBALAMIN 1,000 MCG TABLET 1000 MCG PO (09:17)
--- NOTE | 2020-05-05 10:20 | WPDNEURORHBP ---
Subjective Date/time seen: 05/05/20 10:20 69 years old with right jenna stroke in addition to ongoing is history of 1. Diabetes mellitus 2. COPD 3. Hypertension 4. PVD remains afebrile with temp of 36.8? pulse 71 and respiration 20 pulse ox 95% on room air and blood pressure 125/64, no new lab, discussing the family meeting hoping to discharge him on Monday he will need a follow-up by the ER and RN because of the underlying diabetes mellitus and he lives alone and also his insulin is being adjusted Functional Status Ambulation Ability Ability to Ambulate 10 Feet: Contact Guard Ability to Ambulate 50 Feet With 2 Turns: Contact Guard Ability to Ambulate 150 Feet: Contact Guard Ambulation Assistive Devices: Cane Transfers Ability Ability to Transfer In/Out of Chair: Standby Assistance Exam Const: General: cooperative, no acute distress, well developed, alert and awake Nutritional Appearance: well nourished Orientation/consciousness: patient oriented x3 Limitations: no limitations HENMT: Head: normocephalic Ears: hearing grossly normal bilaterally General nose exam: Normal external nose present and No nasal discharge present Face and sinus: normal facial exam Mouth: Yes Normal oral and palatal mucosa present Eyes: General: appearance normal, both eyes and all related structures Alignment and Position: alignment normal Periorbital: periorbital findings normal Eyelids: eyelids normal Conjunctivae: conjunctivae normal Sclera: sclerae normal Cornea: corneas normal Pupils: Equal, round and reactive pupils present Neck: Neck: full ROM Resp: Effort & Inspection: normal respiratory effort and able to speak in complete sentences Auscultation: clear to auscultation bilaterally Cardio: Jugular venous distension: no JVD Rate: regular rate Rhythm: regular rhythm GI: Auscultation: normoactive bowel sounds Skin: General skin exam: no rashes or lesions noted Neuro: General: patient oriented x3 Cranial nerves: Yes CN's II-XII intact bilaterally Cognition (Neuro): normal cognition Speech: normal speech Gait exam (Neuro): Wide-based gait present and Other gait observations present ( paretic gait) Deep tendon reflexes (DTR's): Right triceps reflex intensity grade: 2+, Left triceps reflex intensity grade: 1+, Rt Biceps (C5, C6): 2+, Left biceps reflex intensity grade: 1+, Right brachioradialis reflex intensity grade: 2+, Left brachioradialis reflex intensity grade: 1+, Right patellar reflex intensity grade: 2+, Left patellar reflex intensity grade: 1+, Right ankle reflex intensity grade: 2+ and Left ankle reflex intensity grade: 1+ Plantar Reflex Responses: downgoing: left and upgoing (positive Babinski): right Coordination: [id number] test normal Romberg Test: Positive ( slight) Psych: Appearance: grossly normal Speech and movement: Normal speech and movement present Affect: normal affect Attitude: cooperative Thought process: Normal thought process present Thought content: Yes Normal thought content present Insight: Good insight present (Psych) Judgement: Good judgement present (Psych) Objective Data Vital Signs Vital Signs: Vital Signs - 24 hr 05/04/20 14:00 05/04/20 20:56 05/05/20 05:43 Temperature 36.6 C 36.9 C 36.8 C Pulse Rate 67 71 71 Respiratory Rate 20 20 20 Blood Pressure 123/61 164/80 H 125/64 Pulse Oximetry 96 98 95 Intake/Output Intake/Output: Intake & Output 05/02/20 05/03/20 05/04/20 05/05/20 23:59 23:59 23:59 23:59 Intake Total 720 720 720 240 Balance 720 720 720 240 Meds/Results Medications: Active Medications Generic Name Dose Route Start Last Admin Trade Name Mannyq PRN Reason Stop Dose Admin Acetaminophen 500 mg 04/28/20 18:54 05/04/20 21:01 Acetaminophen 500 Mg Tablet PO 500 mg Q6H PRN Administration Pain Hydrocodone Bitart/Acetaminophen 1 tab 04/29/20 14:00 05/05/20 05:46 Hydrocodone/Acetaminophen (*Crx) 10-325 Mg Tablet PO 1 tab Q8H SUKHJINDER Administration
[2020-05-05 11:53] LABS: Glucose Point of Care 226 (65-105)
[2020-05-05 14:00] VITALS: BP 127/70; PULSE 75; RESP 20; TEMP 37.1; O2SAT 95
[2020-05-05 16:57] LABS: Glucose Point of Care 210 (65-105)
[2020-05-05 19:45] VITALS: PULSE 75; RESP 20; O2SAT 95
[2020-05-05 20:16] VITALS: BP 121/73; PULSE 73; RESP 18; TEMP 36.6; O2SAT 96
[2020-05-05] MEDS: ATORVASTATIN 20 MG TABLET PO (20:18)
[2020-05-05] MEDS: EZETIMIBE 10 MG TABLET PO (20:18)
[2020-05-05] MEDS: GABAPENTIN 300 MG CAPSULE PO (20:19)
[2020-05-05] MEDS: INSULIN GLARGINE (*BKC) 100 UNITS/ML 20 UNITS SUB-Q (20:21)
[2020-05-05 20:56] LABS: Glucose Point of Care 238 (65-105)
[2020-05-06] MEDS: CLINDAMYCIN HCL 150 MG CAP 300 MG PO ×5 (00:08→23:03)
[2020-05-06] MEDS: TIZANIDINE HCL 4 MG TABLET 8 MG PO (02:33)
[2020-05-06 05:17] LABS: Basophils Absolute Auto 0.1 K/mm3 (0.0-0.1); Basophils Percent Auto 0.7 % (0.2-1.2); Eosinophils Absolute Auto 0.2 K/mm3 (0-0.3); Eosinophils Percent Auto 2.4 % (0-4.4); Hematocrit 44.4 % (42.0-52.0); Hemoglobin 14.5 g/dL (14.0-18.0); Immature Granulocyte Absolute 0.07 K/mm3 (0.00-0.031); Immature Granulocyte Percent A 0.7 % (0-0.5); Lymphocytes Absolute Auto 2.67 K/mm3 (0.9-3.2); Lymphocytes Percent Auto 27.2 % (18.3-44.2); Mean Corpuscular HGB Conc 32.7 g/dl (32-36); Mean Corpuscular Hemoglobin 29.5 pg (26-34); Mean Corpuscular Volume 90.2 fl (80-100); Monocytes Absolute Auto 0.9 K/mm3 (0.1-0.6); Monocytes Percent Auto 9.6 % (2.6-8.5); Neutrophils Absolute Auto 5.8 K/mm3 (1.3-6.7); Neutrophils Percent Auto 59.4 % (45.5-73.1); Platelet Count Result 286 k/mm3 (150-375); Red Blood Count 4.92 M/mm3 (4.6-6.20); Red Cell Distribution Width 14.1 % (11.5-14.5); White Blood Count 9.8 K/mm3 (4.5-10.0)
[2020-05-06 05:32] LABS: Anion Gap 1 mmol/L (8-16); Blood Urea Nitrogen 12 mg/dL (9-20); Calcium 8.2 mg/dL (8.4-10.2); Carbon Dioxide 29 mmol/L (22-30); Chloride 104 mmol/L (98-107); Estimated CRCL calculation 105 ml/min; Estimated Glomerular Filt Rate > 60; Glucose 170 mg/dL (75-110); Potassium 4.4 mmol/L (3.4-5.0); Sodium 134 mmol/L (137-145)
[2020-05-06 05:44] VITALS: BP 110/63; PULSE 60; RESP 18; TEMP 36.3; O2SAT 95
[2020-05-06] MEDS: HYDROcodone/acetaminophen (*CRX) 10-325 MG TABLET 1 TAB PO ×3 (05:50→22:22)
[2020-05-06] MEDS: LEVOTHYROXINE SODIUM 125 MCG TABLET PO (05:52)
[2020-05-06 07:02] LABS: Glucose Point of Care 168 (65-105)
[2020-05-06] MEDS: FAMOTIDINE 20 MG TABLET PO ×2 (09:00→20:19)
[2020-05-06] MEDS: MAGNESIUM OXIDE 200 MG TABLET PO (09:00)
[2020-05-06] MEDS: CLOPIDOGREL BISULFATE 75 MG TABLET PO (09:00)
[2020-05-06] MEDS: VITAMIN B COMPLEX CAPSULE 1 CAP PO (09:00)
[2020-05-06] MEDS: CHOLECALCIFEROL 1,000 UNITS TABLET 1000 UNITS PO (09:00)
[2020-05-06] MEDS: CYANOCOBALAMIN 1,000 MCG TABLET 1000 MCG PO (09:00)
[2020-05-06] MEDS: ASPIRIN 81 MG CHEWABLE TABLET PO (09:00)
[2020-05-06] MEDS: INSULIN ASPART (*BKC) 100 UNITS/ML SUB-Q ×4 (09:01→16:52)
[2020-05-06 09:29] LABS: Glucose Point of Care 246 (65-105)
[2020-05-06 10:00] VITALS: BP 91/56
[2020-05-06 12:00] LABS: Glucose Point of Care 178 (65-105)
--- NOTE | 2020-05-06 12:49 | PCDIET ---
Nutrition Follow-Up Complete: Nutrition Diagnosis: Altered nutrition related labs related to diabetes mellitus as evidenced by HgbA1C of 7.8%. Nutrition Goal: Patient to meet estimated nutritional needs. Goal met. Patient reports appetite is generally good and is tolerating diabetic, easy to chew diet. Reviewed importance of controlling diabetes upon discharge. Patient verbalized understanding and stated he would like to see glucose a little better controlled. Last recorded weight is 104.3 kg. Recommend obtaining new weight. Bowel Motility: Last documented BM on 05/04/20. Labs Reviewed: Glu (170), Na (134) Meds Noted: [place], Lipitor, Clindamycin, Vitamin B12, Vitamin B-complex, Vitamin D, Pepcid, Lantus, Synthroid, Mag-Ox Additional Notes: No documented skin breakdown. Will continue to monitor with same goal. Nutrition Monitoring and Evaluation: Follow up in 7 days.
[2020-05-06 14:00] VITALS: BP 114/58; PULSE 57; RESP 20; TEMP 36.7; O2SAT 97
--- NOTE | 2020-05-06 16:00 | WPDNEURORHBP ---
Subjective Date/time seen: 05/06/20 16:00 69 years old with history of stroke, Tiki mellitus, hypertension, PVD, has been involved in the physical therapy and occupational therapy on a regular basis has no specific complaint exams remained stable his temp is 36.3? pulse 60 respiration 18 pulse ox 95% on room air and a blood pressure 91/56 somewhat low, lab reveals WBC only 9.8 hemoglobin 14.5 and a platelet count of 286 sodium 134 blood sugar up and down considering and low blood pressure complaint of lightheadedness with discontinue the lisinopril Review of Systems Review of Systems: All systems reviewed & are unremarkable except as noted in HPI and below Functional Status Ambulation Ability Ability to Ambulate 10 Feet: Contact Guard Ability to Ambulate 50 Feet With 2 Turns: Contact Guard Ability to Ambulate 150 Feet: Contact Guard Ambulation Assistive Devices: Cane Transfers Ability Ability to Transfer In/Out of Chair: Standby Assistance Exam Const: General: cooperative Nutritional Appearance: overweight HENMT: Ears: hearing grossly normal bilaterally General nose exam: Normal external nose present and No nasal discharge present Mouth: Yes Normal oral and palatal mucosa present Eyes: General: appearance normal, both eyes and all related structures Neck: Neck: full ROM Resp: Effort & Inspection: normal respiratory effort Auscultation: clear to auscultation bilaterally Cardio: Jugular venous distension: no JVD Rate: regular rate Skin: General skin exam: no rashes or lesions noted Neuro: General: patient oriented x3 and moves all extremities Cranial nerves: Yes CN's II-XII intact bilaterally Cognition (Neuro): normal cognition Speech: normal speech Motor exam (neuro): Abnormal motor strength present Deep tendon reflexes (DTR's): Right triceps reflex intensity grade: 2+, Left triceps reflex intensity grade: 1+, Rt Biceps (C5, C6): 2+, Left biceps reflex intensity grade: 1+, Right brachioradialis reflex intensity grade: 2+, Left brachioradialis reflex intensity grade: 1+, Right patellar reflex intensity grade: 2+, Left patellar reflex intensity grade: 1+, Right ankle reflex intensity grade: 2+ and Left ankle reflex intensity grade: 1+ Plantar Reflex Responses: downgoing: left and upgoing (positive Babinski): right Psych: Appearance: grossly normal Objective Data Vital Signs Vital Signs: Vital Signs - 24 hr 05/05/20 19:45 05/05/20 20:16 05/06/20 05:44 Temperature 36.6 C 36.3 C L Pulse Rate 75 73 60 Respiratory Rate 20 18 18 Blood Pressure 121/73 110/63 Pulse Oximetry 95 96 95 05/06/20 10:00 Temperature Pulse Rate Respiratory Rate Blood Pressure 91/56 L Pulse Oximetry Intake/Output Intake/Output: Intake & Output 05/03/20 05/04/20 05/05/20 05/06/20 23:59 23:59 23:59 23:59 Intake Total 720 720 720 240 Balance 720 720 720 240 Meds/Results Medications: Active Medications Generic Name Dose Route Start Last Admin Trade Name Freq PRN Reason Stop Dose Admin Acetaminophen 500 mg 04/28/20 18:54 05/04/20 21:01 Acetaminophen 500 Mg Tablet PO 500 mg Q6H PRN Administration Pain Hydrocodone Bitart/Acetaminophen 1 tab 04/29/20 14:00 05/06/20 14:41 Hydrocodone/Acetaminophen (*Crx) 10-325 Mg Tablet PO 1 tab Q8H SUKHJINDER Administration Albuterol 2 puff 04/28/20 18:54 Albuterol Sulfate (*Sp) Aerosol 1 Puff INHALATION Q4H PRN Wheezing Aspirin 81 mg 04/29/20 09:00 05/06/20 09:00 Aspirin 81 Mg Chewable Tablet PO 05/29/20 09:01 81 mg DAILY SUKHJINDER Administration Atorvastatin Calcium 20 mg 04/28/20 21:00 05/05/20 20:18 Atorvastatin 20 Mg Tablet PO 20 mg HS SUKHJINDER Administration Clindamycin HCl 300 mg 05/02/20 18:00 05/06/20 12:38 Clindamycin Hcl 150 Mg Cap PO 300 mg Q6HR SUKHJINDER Administration Clopidogrel Bisulfate 75 mg 04/29/20 09:00 05/06/20 09:00 Clopidogrel Bisulfate 75 Mg Tablet PO 75 mg DAILY SUKHJINDER Administration Cyanoc
[2020-05-06 16:28] LABS: Glucose Point of Care 223 (65-105)
[2020-05-06] MEDS: ACETAMINOPHEN 500 MG TABLET PO (19:41)
[2020-05-06 20:04] VITALS: BP 126/70; PULSE 76; RESP 20; TEMP 36.4; O2SAT 99
[2020-05-06] MEDS: ATORVASTATIN 20 MG TABLET PO (20:18)
[2020-05-06] MEDS: GABAPENTIN 300 MG CAPSULE PO (20:19)
[2020-05-06] MEDS: EZETIMIBE 10 MG TABLET PO (20:19)
[2020-05-06] MEDS: INSULIN GLARGINE (*BKC) 100 UNITS/ML 20 UNITS SUB-Q (20:22)
[2020-05-06 21:03] LABS: Glucose Point of Care 188 (65-105)
[2020-05-07 04:59] VITALS: BP 134/66; PULSE 62; RESP 20; TEMP 36.6; O2SAT 98
[2020-05-07] MEDS: CLINDAMYCIN HCL 150 MG CAP 300 MG PO ×4 (06:03→23:06)
[2020-05-07] MEDS: HYDROcodone/acetaminophen (*CRX) 10-325 MG TABLET 1 TAB PO ×3 (06:04→22:02)
[2020-05-07] MEDS: LEVOTHYROXINE SODIUM 125 MCG TABLET PO (06:04)
[2020-05-07 06:53] LABS: Glucose Point of Care 152 (65-105)
[2020-05-07] MEDS: INSULIN ASPART (*BKC) 100 UNITS/ML SUB-Q ×4 (07:23→17:02)
[2020-05-07] MEDS: ASPIRIN 81 MG CHEWABLE TABLET PO (07:24)
[2020-05-07] MEDS: CLOPIDOGREL BISULFATE 75 MG TABLET PO (07:24)
[2020-05-07] MEDS: CHOLECALCIFEROL 1,000 UNITS TABLET 1000 UNITS PO (07:24)
[2020-05-07] MEDS: MAGNESIUM OXIDE 200 MG TABLET PO (07:24)
[2020-05-07] MEDS: FAMOTIDINE 20 MG TABLET PO ×2 (07:24→20:23)
[2020-05-07] MEDS: VITAMIN B COMPLEX CAPSULE 1 CAP PO (07:24)
[2020-05-07] MEDS: CYANOCOBALAMIN 1,000 MCG TABLET 1000 MCG PO (07:24)
[2020-05-07 11:41] LABS: Glucose Point of Care 179 (65-105)
--- NOTE | 2020-05-07 12:21 | WPDNEURORHBP ---
Subjective Date/time seen: 05/07/20 12:21 69 years old with stroke, diabetes mellitus hypertension, PVD has been involved in therapy at present able to ambulate up to 150ft with contact guard that his cane, remains afebrile with temp of 36.6? pulse 62 respiration 20 blood pressure 134/66 and blood sugar of 179,medications unchanged Review of Systems Review of Systems: All systems reviewed & are unremarkable except as noted in HPI and below Functional Status Ambulation Ability Ability to Ambulate 10 Feet: Standby Assistance Ability to Ambulate 50 Feet With 2 Turns: Standby Assistance Ability to Ambulate 150 Feet: Contact Guard Ambulation Assistive Devices: Cane Transfers Ability Ability to Transfer In/Out of Chair: Contact Guard Exam Const: General: cooperative and comfortable Nutritional Appearance: average body habitus Orientation/consciousness: patient oriented x3 HENMT: Ears: hearing grossly normal bilaterally General nose exam: Normal external nose present and No nasal discharge present Face and sinus: normal facial exam Eyes: General: appearance normal, both eyes and all related structures Neck: Neck: full ROM Resp: Auscultation: clear to auscultation bilaterally GI: Auscultation: normal bowel sounds Skin: General skin exam: no rashes or lesions noted Neuro: General: patient oriented x3 and moves all extremities Cranial nerves: Yes CN's II-XII intact bilaterally Cognition (Neuro): normal cognition Speech: normal speech Gait exam (Neuro): Wide-based gait present Motor exam (neuro): Abnormal motor strength present ( right hemiparesis) Deep tendon reflexes (DTR's): Right triceps reflex intensity grade: 2+, Left triceps reflex intensity grade: 1+, Rt Biceps (C5, C6): 2+, Left biceps reflex intensity grade: 1+, Right brachioradialis reflex intensity grade: 2+, Left brachioradialis reflex intensity grade: 1+, Right patellar reflex intensity grade: 2+, Left patellar reflex intensity grade: 1+, Right ankle reflex intensity grade: 2+ and Left ankle reflex intensity grade: 1+ Plantar Reflex Responses: downgoing: left and upgoing (positive Babinski): right Psych: Appearance: grossly normal Objective Data Vital Signs Vital Signs: Vital Signs - 24 hr 05/06/20 14:00 05/06/20 20:04 05/07/20 04:59 Temperature 36.7 C 36.4 C L 36.6 C Pulse Rate 57 L 76 62 Respiratory Rate 20 20 20 Blood Pressure 114/58 L 126/70 134/66 Pulse Oximetry 97 99 98 Intake/Output Intake/Output: Intake & Output 05/04/20 05/05/20 05/06/20 05/07/20 23:59 23:59 23:59 23:59 Intake Total 720 720 720 240 Balance 720 720 720 240 Meds/Results Medications: Active Medications Generic Name Dose Route Start Last Admin Trade Name Freq PRN Reason Stop Dose Admin Acetaminophen 500 mg 04/28/20 18:54 05/06/20 19:41 Acetaminophen 500 Mg Tablet PO 500 mg Q6H PRN Administration Pain Hydrocodone Bitart/Acetaminophen 1 tab 04/29/20 14:00 05/07/20 06:04 Hydrocodone/Acetaminophen (*Crx) 10-325 Mg Tablet PO 1 tab Q8H SUKHJINDER Administration Albuterol 2 puff 04/28/20 18:54 Albuterol Sulfate (*Sp) Aerosol 1 Puff INHALATION Q4H PRN Wheezing Aspirin 81 mg 04/29/20 09:00 05/07/20 07:24 Aspirin 81 Mg Chewable Tablet PO 05/29/20 09:01 81 mg DAILY SUKHJINDER Administration Atorvastatin Calcium 20 mg 04/28/20 21:00 05/06/20 20:18 Atorvastatin 20 Mg Tablet PO 20 mg HS SUKHJINDER Administration Clindamycin HCl 300 mg 05/02/20 18:00 05/07/20 11:58 Clindamycin Hcl 150 Mg Cap PO 300 mg Q6HR SUKHJINDER Administration Clopidogrel Bisulfate 75 mg 04/29/20 09:00 05/07/20 07:24 Clopidogrel Bisulfate 75 Mg Tablet PO 75 mg DAILY SUKHJINDER Administration Cyanocobalamin 1,000 mcg 04/29/20 09:00 05/07/20 07:24 Cyanocobalamin 1,000 Mcg Tablet PO 1,000 mcg DAILY SUKHJINDER Administration Dextrose 12.5 gm 04/28/20 18:18 Dextrose 50% 25 Gm/50 Ml Syringe IV PUSH PRN PRN Hypoglycemia Protocol
[2020-05-07 14:00] VITALS: BP 144/70; PULSE 65; RESP 18; TEMP 37.2; O2SAT 98
[2020-05-07 16:27] LABS: Glucose Point of Care 243 (65-105)
[2020-05-07 19:25] VITALS: BP 136/64; PULSE 62; RESP 16; TEMP 37.2; O2SAT 97
[2020-05-07] MEDS: ATORVASTATIN 20 MG TABLET PO (20:21)
[2020-05-07] MEDS: EZETIMIBE 10 MG TABLET PO (20:22)
[2020-05-07] MEDS: ACETAMINOPHEN 500 MG TABLET PO (20:22)
[2020-05-07] MEDS: GABAPENTIN 300 MG CAPSULE PO (20:23)
[2020-05-07] MEDS: INSULIN GLARGINE (*BKC) 100 UNITS/ML 20 UNITS SUB-Q (20:31)
[2020-05-07 21:03] LABS: Glucose Point of Care 247 (65-105)
[2020-05-08 06:08] VITALS: BP 143/60; PULSE 55; RESP 20; TEMP 36.3; O2SAT 100
[2020-05-08] MEDS: LEVOTHYROXINE SODIUM 125 MCG TABLET PO (06:10)
[2020-05-08] MEDS: HYDROcodone/acetaminophen (*CRX) 10-325 MG TABLET 1 TAB PO ×3 (06:10→22:46)
[2020-05-08] MEDS: CLINDAMYCIN HCL 150 MG CAP 300 MG PO ×3 (06:10→17:21)
[2020-05-08 07:08] LABS: Glucose Point of Care 192 (65-105)
[2020-05-08 08:00] VITALS: PULSE 55; RESP 20; O2SAT 100
[2020-05-08] MEDS: VITAMIN B COMPLEX CAPSULE 1 CAP PO (08:51)
[2020-05-08] MEDS: CHOLECALCIFEROL 1,000 UNITS TABLET 1000 UNITS PO (08:52)
[2020-05-08] MEDS: CYANOCOBALAMIN 1,000 MCG TABLET 1000 MCG PO (08:52)
[2020-05-08] MEDS: CLOPIDOGREL BISULFATE 75 MG TABLET PO (08:52)
[2020-05-08] MEDS: ASPIRIN 81 MG CHEWABLE TABLET PO (08:52)
[2020-05-08] MEDS: MAGNESIUM OXIDE 200 MG TABLET PO (08:52)
[2020-05-08] MEDS: FAMOTIDINE 20 MG TABLET PO ×2 (08:52→20:17)
[2020-05-08] MEDS: INSULIN ASPART (*BKC) 100 UNITS/ML SUB-Q ×4 (08:53→17:23)
[2020-05-08 12:17] LABS: Glucose Point of Care 186 (65-105)
--- NOTE | 2020-05-08 13:40 | WPDNEURORHBP ---
Subjective Date/time seen: 05/08/20 13:40 69 years old with stroke, diabetes mellitus, hypertension, involving the physical therapy and occupational therapy has been ambulating to 150ft with contact guard in using a cane able to transfer in and out of chair with contact guard, has no new lab, remains afebrile with temp of 36.3? pulse 55 respiration 20 pulse ox 100 on room air and blood pressure 143/60 Review of Systems Review of Systems: All systems reviewed & are unremarkable except as noted in HPI and below Functional Status Ambulation Ability Ability to Ambulate 10 Feet: Independent Ability to Ambulate 50 Feet With 2 Turns: Independent Ability to Ambulate 150 Feet: Independent Ambulation Assistive Devices: Cane Transfers Ability Ability to Transfer In/Out of Chair: Independent Exam Const: General: cooperative, healthy appearing, comfortable, no acute distress, well developed and alert Nutritional Appearance: average body habitus HENMT: Ears: hearing grossly normal bilaterally General nose exam: Normal external nose present and No nasal discharge present Eyes: General: appearance normal, both eyes and all related structures Neck: Neck: full ROM Resp: Effort & Inspection: normal respiratory effort Auscultation: clear to auscultation bilaterally Cardio: Jugular venous distension: no JVD Rate: regular rate Rhythm: regular rhythm GI: Auscultation: normal bowel sounds Skin: General skin exam: no rashes or lesions noted Neuro: General: patient oriented x3 and moves all extremities Cranial nerves: Yes CN's II-XII intact bilaterally, Yes Facial sensation intact/muscles of mastication intact, Yes Equal, round and reactive pupils present, Yes Nystagmus not present, Yes facial symmetry, Yes Midline tongue present and Yes Symmetric palate elevation present Cognition (Neuro): normal cognition Speech: normal speech Motor exam (neuro): Abnormal motor strength present ( right hemiparetic) Plantar Reflex Responses: downgoing: left and upgoing (positive Babinski): right Coordination: [id number] test normal Extrem: General: full ROM Psych: Appearance: grossly normal Objective Data Vital Signs Vital Signs: Vital Signs - 24 hr 05/07/20 14:00 05/07/20 19:25 05/08/20 06:08 Temperature 37.2 C 37.2 C 36.3 C L Pulse Rate 65 62 55 L Respiratory Rate 18 16 20 Blood Pressure 144/70 H 136/64 143/60 H Pulse Oximetry 98 97 100 05/08/20 08:00 Temperature Pulse Rate 55 L Respiratory Rate 20 Blood Pressure Pulse Oximetry 100 Intake/Output Intake/Output: Intake & Output 05/05/20 05/06/20 05/07/20 05/08/20 23:59 23:59 23:59 23:59 Intake Total 720 720 810 240 Balance 720 720 810 240 Meds/Results Medications: Active Medications Generic Name Dose Route Start Last Admin Trade Name Freq PRN Reason Stop Dose Admin Acetaminophen 500 mg 04/28/20 18:54 05/07/20 20:22 Acetaminophen 500 Mg Tablet PO 500 mg Q6H PRN Administration Pain Hydrocodone Bitart/Acetaminophen 1 tab 04/29/20 14:00 05/08/20 06:10 Hydrocodone/Acetaminophen (*Crx) 10-325 Mg Tablet PO 1 tab Q8H SUKHJINDER Administration Albuterol 2 puff 04/28/20 18:54 Albuterol Sulfate (*Sp) Aerosol 1 Puff INHALATION Q4H PRN Wheezing Aspirin 81 mg 04/29/20 09:00 05/08/20 08:52 Aspirin 81 Mg Chewable Tablet PO 05/29/20 09:01 81 mg DAILY SUKHJINDER Administration Atorvastatin Calcium 20 mg 04/28/20 21:00 05/07/20 20:21 Atorvastatin 20 Mg Tablet PO 20 mg HS SUKHJINDER Administration Clindamycin HCl 300 mg 05/02/20 18:00 05/08/20 12:20 Clindamycin Hcl 150 Mg Cap PO 300 mg Q6HR SUKHJINDER Administration Clopidogrel Bisulfate 75 mg 04/29/20 09:00 05/08/20 08:52 Clopidogrel Bisulfate 75 Mg Tablet PO 75 mg DAILY SUKHJINDER Administration Cyanocobalamin 1,000 mcg 04/29/20 09:00 05/08/20 08:52 Cyanocobalamin 1,000 Mcg Tablet PO 1,000 mcg DAILY SUKHJINDER Administration Dextrose 12.5 gm 04/28/20 18:18 D
[2020-05-08 14:00] VITALS: BP 125/68; PULSE 68; RESP 20; TEMP 36.8; O2SAT 97
[2020-05-08 16:53] LABS: Glucose Point of Care 289 (65-105)
[2020-05-08 20:00] VITALS: PULSE 66; RESP 18; O2SAT 97
[2020-05-08] MEDS: EZETIMIBE 10 MG TABLET PO (20:17)
[2020-05-08] MEDS: GABAPENTIN 300 MG CAPSULE PO (20:17)
[2020-05-08] MEDS: ATORVASTATIN 20 MG TABLET PO (20:17)
[2020-05-08] MEDS: INSULIN GLARGINE (*BKC) 100 UNITS/ML 20 UNITS SUB-Q (20:17)
[2020-05-08 21:09] LABS: Glucose Point of Care 244 (65-105)
[2020-05-08 22:00] VITALS: BP 132/68; PULSE 66; RESP 18; TEMP 36.6; O2SAT 97
[2020-05-09] MEDS: CLINDAMYCIN HCL 150 MG CAP 300 MG PO ×5 (01:06→23:48)
[2020-05-09 06:00] VITALS: BP 130/56; PULSE 70; RESP 18; TEMP 36.7; O2SAT 100
[2020-05-09] MEDS: LEVOTHYROXINE SODIUM 125 MCG TABLET PO (06:17)
[2020-05-09] MEDS: HYDROcodone/acetaminophen (*CRX) 10-325 MG TABLET 1 TAB PO ×3 (06:17→21:57)
[2020-05-09 06:44] LABS: Glucose Point of Care 203 (65-105)
[2020-05-09] MEDS: INSULIN ASPART (*BKC) 100 UNITS/ML SUB-Q ×5 (09:26→17:40)
[2020-05-09] MEDS: MAGNESIUM OXIDE 200 MG TABLET PO (09:28)
[2020-05-09] MEDS: CLOPIDOGREL BISULFATE 75 MG TABLET PO (09:28)
[2020-05-09] MEDS: CHOLECALCIFEROL 1,000 UNITS TABLET 1000 UNITS PO (09:28)
[2020-05-09] MEDS: CYANOCOBALAMIN 1,000 MCG TABLET 1000 MCG PO (09:28)
[2020-05-09] MEDS: VITAMIN B COMPLEX CAPSULE 1 CAP PO (09:28)
[2020-05-09] MEDS: ASPIRIN 81 MG CHEWABLE TABLET PO (09:28)
[2020-05-09] MEDS: FAMOTIDINE 20 MG TABLET PO ×2 (09:28→20:31)
[2020-05-09 11:58] LABS: Glucose Point of Care 204 (65-105)
[2020-05-09] MEDS: ACETAMINOPHEN 500 MG TABLET PO (12:15)
[2020-05-09 14:00] VITALS: BP 127/70; PULSE 67; RESP 20; TEMP 36.8; O2SAT 97
[2020-05-09 17:11] LABS: Glucose Point of Care 140 (65-105)
[2020-05-09] MEDS: TRIAMCINOLONE ACET 0.5% CREAM 15 GM TUBE 1 APPLIC TOPICAL (17:39)
[2020-05-09 20:00] VITALS: PULSE 67; RESP 20; O2SAT 97
[2020-05-09] MEDS: GABAPENTIN 300 MG CAPSULE PO (20:31)
[2020-05-09] MEDS: EZETIMIBE 10 MG TABLET PO (20:31)
[2020-05-09] MEDS: ATORVASTATIN 20 MG TABLET PO (20:31)
[2020-05-09] MEDS: INSULIN GLARGINE (*BKC) 100 UNITS/ML 20 UNITS SUB-Q (20:36)
[2020-05-09 20:45] LABS: Glucose Point of Care 284 (65-105)
[2020-05-09 21:33] VITALS: BP 126/66; PULSE 61; RESP 18; TEMP 36.6; O2SAT 97
[2020-05-10] MEDS: CLINDAMYCIN HCL 150 MG CAP 300 MG PO ×4 (05:48→23:47)
[2020-05-10] MEDS: HYDROcodone/acetaminophen (*CRX) 10-325 MG TABLET 1 TAB PO ×3 (05:48→21:54)
[2020-05-10] MEDS: LEVOTHYROXINE SODIUM 125 MCG TABLET PO (05:48)
[2020-05-10 06:00] VITALS: BP 134/72; PULSE 61; RESP 18; TEMP 36.4; O2SAT 97
[2020-05-10 06:46] LABS: Glucose Point of Care 196 (65-105)
[2020-05-10] MEDS: INSULIN ASPART (*BKC) 100 UNITS/ML SUB-Q ×5 (09:46→17:44)
[2020-05-10] MEDS: CLOPIDOGREL BISULFATE 75 MG TABLET PO (09:47)
[2020-05-10] MEDS: ASPIRIN 81 MG CHEWABLE TABLET PO (09:47)
[2020-05-10] MEDS: CHOLECALCIFEROL 1,000 UNITS TABLET 1000 UNITS PO (09:47)
[2020-05-10] MEDS: CYANOCOBALAMIN 1,000 MCG TABLET 1000 MCG PO (09:47)
[2020-05-10] MEDS: VITAMIN B COMPLEX CAPSULE 1 CAP PO (09:47)
[2020-05-10] MEDS: FAMOTIDINE 20 MG TABLET PO ×2 (09:47→20:29)
[2020-05-10] MEDS: TRIAMCINOLONE ACET 0.5% CREAM 15 GM TUBE 1 APPLIC TOPICAL ×3 (09:48→17:44)
[2020-05-10] MEDS: MAGNESIUM OXIDE 200 MG TABLET PO (09:48)
[2020-05-10 12:02] LABS: Glucose Point of Care 210 (65-105)
--- NOTE | 2020-05-10 12:05 | WPDNEURORHBP ---
Subjective Date/time seen: 05/10/20 12:05 69 years old with stroke, with these mellitus, hypertension, remains afebrile temp of 36.4? respiration 18 pulse 61 blood pressure 134/72 and pulse ox 97% on room air, a new lab Review of Systems Review of Systems: All systems reviewed & are unremarkable except as noted in HPI and below Functional Status Ambulation Ability Ability to Ambulate 10 Feet: Independent Ability to Ambulate 50 Feet With 2 Turns: Independent Ability to Ambulate 150 Feet: Independent Ambulation Assistive Devices: Cane Transfers Ability Ability to Transfer In/Out of Chair: Independent Exam Const: General: cooperative, healthy appearing, comfortable and no acute distress Nutritional Appearance: well nourished Orientation/consciousness: patient oriented x3 Limitations: no limitations HENMT: Ears: hearing grossly normal bilaterally and external ears normal General nose exam: Normal external nose present and No nasal discharge present Eyes: General: appearance normal, both eyes and all related structures Neck: Neck: full ROM Resp: Effort & Inspection: normal respiratory effort Auscultation: clear to auscultation bilaterally Cardio: Jugular venous distension: no JVD Rate: regular rate Rhythm: regular rhythm Skin: General skin exam: no rashes or lesions noted Extrem: General: normal to inspection and full ROM Objective Data Vital Signs Vital Signs: Vital Signs - 24 hr 05/09/20 14:00 05/09/20 20:00 05/09/20 21:33 Temperature 36.8 C 36.6 C Pulse Rate 67 67 61 Respiratory Rate 20 20 18 Blood Pressure 127/70 126/66 Pulse Oximetry 97 97 97 05/10/20 06:00 Temperature 36.4 C L Pulse Rate 61 Respiratory Rate 18 Blood Pressure 134/72 Pulse Oximetry 97 Intake/Output Intake/Output: Intake & Output 05/07/20 05/08/20 05/09/20 05/10/20 23:59 23:59 23:59 23:59 Intake Total 810 720 600 240 Balance 810 720 600 240 Meds/Results Medications: Active Medications Generic Name Dose Route Start Last Admin Trade Name Freq PRN Reason Stop Dose Admin Acetaminophen 500 mg 04/28/20 18:54 05/09/20 12:15 Acetaminophen 500 Mg Tablet PO 500 mg Q6H PRN Administration Pain Hydrocodone Bitart/Acetaminophen 1 tab 04/29/20 14:00 05/10/20 05:48 Hydrocodone/Acetaminophen (*Crx) 10-325 Mg Tablet PO 1 tab Q8H SUKHJINDER Administration Albuterol 2 puff 04/28/20 18:54 Albuterol Sulfate (*Sp) Aerosol 1 Puff INHALATION Q4H PRN Wheezing Aspirin 81 mg 04/29/20 09:00 05/10/20 09:47 Aspirin 81 Mg Chewable Tablet PO 05/29/20 09:01 81 mg DAILY SUKHJINDER Administration Atorvastatin Calcium 20 mg 04/28/20 21:00 05/09/20 20:31 Atorvastatin 20 Mg Tablet PO 20 mg HS SUKHJINDER Administration Clindamycin HCl 300 mg 05/02/20 18:00 05/10/20 05:48 Clindamycin Hcl 150 Mg Cap PO 300 mg Q6HR SUKHJINDER Administration Clopidogrel Bisulfate 75 mg 04/29/20 09:00 05/10/20 09:47 Clopidogrel Bisulfate 75 Mg Tablet PO 75 mg DAILY SUKHJINDER Administration Cyanocobalamin 1,000 mcg 04/29/20 09:00 05/10/20 09:47 Cyanocobalamin 1,000 Mcg Tablet PO 1,000 mcg DAILY SUKHJINDER Administration Dextrose 12.5 gm 04/28/20 18:18 Dextrose 50% 25 Gm/50 Ml Syringe IV PUSH PRN PRN Hypoglycemia Protocol Ezetimibe 10 mg 04/28/20 21:00 05/09/20 20:31 Ezetimibe 10 Mg Tablet PO 10 mg HS SUKHJINDER Administration Famotidine 20 mg 04/28/20 21:00 05/10/20 09:47 Famotidine 20 Mg Tablet PO 20 mg Q12HR SUKHJINDER Administration Gabapentin 300 mg 04/28/20 21:00 05/09/20 20:31 Gabapentin 300 Mg Capsule PO 300 mg HS SUKHJINDER Administration Glucagon 1 mg 04/28/20 18:18 Glucagon For Inj 1 Mg Vial IM PRN PRN Hypoglycemia Protocol Glucose 15 gm 04/28/20 18:18 Glucose Oral Gel 15 Gm Of Glucse In 37.5 Gm Tube PO PRN PRN Hypoglycemia Protocol Dextrose 1,000 mls @ 100 mls/hr 04/28/20 18:18 Dextrose 5% 1,000 Ml IVPB
[2020-05-10 14:00] VITALS: BP 116/7; PULSE 65; RESP 18; TEMP 36.6; O2SAT 96
[2020-05-10 16:52] LABS: Glucose Point of Care 221 (65-105)
[2020-05-10 20:00] VITALS: PULSE 61; RESP 18; O2SAT 97
[2020-05-10 20:21] LABS: Glucose Point of Care 321 (65-105)
[2020-05-10] MEDS: INSULIN GLARGINE (*BKC) 100 UNITS/ML 20 UNITS SUB-Q (20:26)
[2020-05-10] MEDS: EZETIMIBE 10 MG TABLET PO (20:29)
[2020-05-10] MEDS: GABAPENTIN 300 MG CAPSULE PO (20:29)
[2020-05-10] MEDS: ATORVASTATIN 20 MG TABLET PO (20:29)
[2020-05-10 20:39] VITALS: BP 125/62; PULSE 61; RESP 18; TEMP 36.3; O2SAT 97
[2020-05-11 05:19] VITALS: BP 120/71; PULSE 67; RESP 18; TEMP 36.4; O2SAT 100
[2020-05-11] MEDS: HYDROcodone/acetaminophen (*CRX) 10-325 MG TABLET 1 TAB PO ×3 (05:35→21:49)
[2020-05-11] MEDS: CLINDAMYCIN HCL 150 MG CAP 300 MG PO ×4 (05:36→23:51)
[2020-05-11 05:50] LABS: Glucose Point of Care 206 (65-105)
[2020-05-11] MEDS: LEVOTHYROXINE SODIUM 125 MCG TABLET PO (06:23)
[2020-05-11 07:39] LABS: Glucose Point of Care 204 (65-105)
[2020-05-11] MEDS: INSULIN ASPART (*BKC) 100 UNITS/ML SUB-Q ×5 (07:58→16:52)
[2020-05-11] MEDS: ASPIRIN 81 MG CHEWABLE TABLET PO (08:45)
[2020-05-11] MEDS: CHOLECALCIFEROL 1,000 UNITS TABLET 1000 UNITS PO (08:45)
[2020-05-11] MEDS: VITAMIN B COMPLEX CAPSULE 1 CAP PO (08:45)
[2020-05-11] MEDS: FAMOTIDINE 20 MG TABLET PO ×2 (08:45→20:39)
[2020-05-11] MEDS: MAGNESIUM OXIDE 200 MG TABLET PO (08:45)
[2020-05-11] MEDS: CYANOCOBALAMIN 1,000 MCG TABLET 1000 MCG PO (08:45)
[2020-05-11] MEDS: CLOPIDOGREL BISULFATE 75 MG TABLET PO (08:45)
[2020-05-11] MEDS: TRIAMCINOLONE ACET 0.5% CREAM 15 GM TUBE 1 APPLIC TOPICAL ×2 (08:49→14:36)
[2020-05-11 11:49] LABS: Glucose Point of Care 153 (65-105)
[2020-05-11 14:00] VITALS: BP 130/59; PULSE 67; RESP 18; TEMP 36.8; O2SAT 99
[2020-05-11 16:47] LABS: Glucose Point of Care 245 (65-105)
[2020-05-11 20:00] VITALS: PULSE 55; RESP 14; O2SAT 98
[2020-05-11 20:17] LABS: Glucose Point of Care 302 (65-105)
[2020-05-11] MEDS: EZETIMIBE 10 MG TABLET PO (20:38)
[2020-05-11] MEDS: ATORVASTATIN 20 MG TABLET PO (20:38)
[2020-05-11] MEDS: GABAPENTIN 300 MG CAPSULE PO (20:39)
[2020-05-11] MEDS: INSULIN GLARGINE (*BKC) 100 UNITS/ML 20 UNITS SUB-Q (20:39)
[2020-05-11 21:59] VITALS: BP 116/64; PULSE 55; RESP 14; TEMP 36.1; O2SAT 98
[2020-05-12 05:49] LABS: Glucose Point of Care 213 (65-105)
[2020-05-12] MEDS: CLINDAMYCIN HCL 150 MG CAP 300 MG PO ×2 (05:52→12:46)
[2020-05-12] MEDS: HYDROcodone/acetaminophen (*CRX) 10-325 MG TABLET 1 TAB PO ×2 (05:52→13:07)
[2020-05-12] MEDS: LEVOTHYROXINE SODIUM 125 MCG TABLET PO (06:19)
[2020-05-12] MEDS: INSULIN ASPART (*BKC) 100 UNITS/ML SUB-Q ×3 (07:55→12:45)
[2020-05-12 08:00] VITALS: BP 136/67; PULSE 65; RESP 18; TEMP 36.6; O2SAT 96
[2020-05-12] MEDS: MAGNESIUM OXIDE 200 MG TABLET PO (08:00)
[2020-05-12] MEDS: CLOPIDOGREL BISULFATE 75 MG TABLET PO (08:01)
[2020-05-12] MEDS: CHOLECALCIFEROL 1,000 UNITS TABLET 1000 UNITS PO (08:01)
[2020-05-12] MEDS: VITAMIN B COMPLEX CAPSULE 1 CAP PO (08:01)
[2020-05-12] MEDS: CYANOCOBALAMIN 1,000 MCG TABLET 1000 MCG PO (08:01)
[2020-05-12] MEDS: ASPIRIN 81 MG CHEWABLE TABLET PO (08:01)
[2020-05-12] MEDS: FAMOTIDINE 20 MG TABLET PO (08:01)
[2020-05-12] MEDS: TRIAMCINOLONE ACET 0.5% CREAM 15 GM TUBE 1 APPLIC TOPICAL ×2 (08:03→12:45)
[2020-05-12 12:07] LABS: Glucose Point of Care 192 (65-105)
--- NOTE | 2020-05-14 12:32 | PM.DS ---
DS: Admitting Diagnosis Admitting Diagnosis Admitting Diagnosis: stroke involving the right cerebral hemisphere subcortical in location DS: Summary Hospital Course Hospital Course: remained stable with no unusual complications and also was actively involved in the physical therapy and occupation therapy, was discharged to his home with no history of falls Time Spent with Patient Time attestation: :ADMISSION FUNCTION: 69 years old right-handed male admitted to the stroke rehab floor with the diagnosis of acute right cerebral subcortical stroke in addition to the comorbid conditions of 1. Diabetes mellitus 2. Hypertension 3. PVD and with documented head and neck CTA negative, abnormal MRI with small acute recent infarct in the right cerebral hemisphere in addition to multiple chronic infarctions as well and also COVID negative. At the time of admission as per the information available patient required Eating [Set Up Only] Oral Care substantial assistance Toileting Hygiene partial assistance Shower/Bathing substantial assistance Upper Body Dressing substantial assistance Lower Body Dressing substantial assistance Donning/[place] Footwear supervision Rolling Left and Right supervision Sit to Lying partial assistance Lying to Sitting partial assistance Sit to Stand partial assistance Bed to Chair Transfers substantial assistance Toilet Transfers partial assistance Car Transfers substantial assistance Walking 10' substantial assistance Walking 50' with Two Turns substantial assistance Walking 150' unable Curb or Step substantial assistance 4 Steps unable 12 Steps unable Picking Up Object substantial assistance [Wheelchair Mobility 50'] not applicable [Wheelchair Mobility 150'] not applicable GOALS: Eating [INDEPENDENT] Oral Care [INDEPENDENT] Toileting Hygiene [INDEPENDENT] Shower/Bathing [INDEPENDENT] Upper Body Dressing [INDEPENDENT] Lower Body Dressing [INDEPENDENT] Donning/[place] Footwear [INDEPENDENT] Rolling Left and Right [INDEPENDENT] Sit to Lying [INDEPENDENT] Lying to Sitting [INDEPENDENT] Sit to Stand [INDEPENDENT] Bed to Chair Transfers [INDEPENDENT] Toilet Transfers [INDEPENDENT] Car Transfers [INDEPENDENT] Walking 10' [INDEPENDENT] Walking 50' with Two Turns [INDEPENDENT] Walking 150' [INDEPENDENT] Curb or Step [INDEPENDENT] 4 Steps [INDEPENDENT] 12 Steps supervision Picking Up Object [INDEPENDENT] [Wheelchair Mobility 50'] not applicable [Wheelchair Mobility 150'] not applicable DISCHARGE PERFORMANCE: Eating set up Oral Care [INDEPENDENT] Toileting Hygiene [INDEPENDENT] Shower/Bathing [INDEPENDENT] Upper Body Dressing set up Lower Body Dressing set up Donning/[place] Footwear [INDEPENDENT] Rolling Left and Right [INDEPENDENT] Sit to Lying [INDEPENDENT] Lying to Sitting [INDEPENDENT] Sit to Stand [INDEPENDENT] Bed to Chair Transfers [INDEPENDENT] Toilet Transfers [INDEPENDENT] Car Transfers [INDEPENDENT] Walking 10' supervision Walking 50' with Two Turns [INDEPENDENT] Walking 150' [INDEPENDENT] Curb or Step supervision 4 Steps supervision 12 Steps supervision Picking Up Object [INDEPENDENT] [Wheelchair Mobility 50'] [Wheelchair Mobility 150'] not applicable The patient had [no falls]. not applicable throughout the hospitalization patient had no falls or injuries was discharged to his home with Home Health instruction. At the time of discharge he was afebrile with pulse 62 and respiration 20 blood pressure 134/66 he was able to ambulate [place] up to 150ft also able to transfer in and out of chair with contact guard and general physical examination was stable Discharge Plan Discharge Attending physician on discharge: Edwin Jo Consulting providers: Tony Kilpatrick ; Discharging Clinician: Edwin Jo Anticipated Discharge Date/Time: 05/12/20 09:54 Patient Disposition: Home Health Service Activity: may shower, no driving and as tolerated Diet: diabetic Discharge
== END 2020-05-12 13:35 | disposition home health service (06) | DRG 57 ==
PROVIDERS: Admitting Provider Psychiatry & Neurology Neurology; Visit Provider Psychiatry & Neurology Neurology
DX: I69.354 Hemiplegia and hemiparesis following cerebral infarction affecting left non-dominant side (principal); I10 Essential (primary) hypertension; E11.51 Type 2 diabetes mellitus with diabetic peripheral angiopathy without gangrene; E11.42 Type 2 diabetes mellitus with diabetic polyneuropathy; E78.5 Hyperlipidemia, unspecified; F17.210 Nicotine dependence, cigarettes, uncomplicated; J44.9 Chronic obstructive pulmonary disease, unspecified; N40.0 Benign prostatic hyperplasia without lower urinary tract symptoms; Z79.02 Long term (current) use of antithrombotics/antiplatelets; Z79.82 Long term (current) use of aspirin; Z79.4 Long term (current) use of insulin; Z91.14 Patient's other noncompliance with medication regimen
CPT/HCPCS: 36415; 80048; 80061; 81001; 83036; 85025; 92507; 92523; 92610; 92611; 97110; 97116; 97161; 97166; 97530; 97535; A9270; J1815